=== PATIENT | female | born 1985 | race Caucasian/White ===

== ENCOUNTER 2019-08-01 12:29 | Emergency (ER) | payer BC ==
[~2019-08-01] VITALS: Ht 170.2 cm; Wt 59.0 kg
[2019-08-01 13:10] LABS: URINE BILIRUBIN NEGATIVE (Negative); URINE BLOOD NEGATIVE (Negative); URINE CLARITY CLEAR; URINE COLOR YELLOW; URINE GLUCOSE-RANDOM NEGATIVE (Negative); URINE KETONES NEGATIVE (Negative); URINE LEUKOCYTES-REFLEX NEGATIVE (Negative); URINE NITRITE-REFLEX NEGATIVE (Negative); URINE PROTEIN NEGATIVE (Negative); URINE SPECIFIC GRAVITY 1.025 (1.005-1.030); URINE UROBILINOGEN 0.2 E.U./dl (0.2-1.0)
[2019-08-01 13:13] LABS: ABSOLUTE EOSINOPHILS 0.1 thou/uL (0.0-0.7); ABSOLUTE LYMPHOCYTES 1.8 thou/uL (0.8-5.3); ABSOLUTE MONOCYTES 0.4 thou/uL (0.0-1.2); ABSOLUTE NEUTROPHILS 3.7 thou/uL (1.6-8.1); BASOPHILS 0.6 %; EOSINOPHILS 1.2 %; HEMATOCRIT 38.3 % (37.0-47.0); LYMPHOCYTES 30.3 %; MCH 29.4 pg (26.0-34.0); MCHC 33.8 g/dL (28.0-37.0); MCV 86.9 fL (80.0-100.0); MONOCYTES 6.4 %; MPV 9.5 fl. (7.2-11.1); NUCLEATED RBCS 0 /100WBC; PLATELET COUNT* 186 thou/uL (150-400); POLYS 61.5 %; RBC 4.41 mil/uL (4.20-5.00); RDW-CV 13.9 % (10.5-14.5)
[2019-08-01 13:25] LABS: AMP/METHAMP Negative (Negative); BARBITURATES Negative (Negative); BENZODIAZEPINES Negative (Negative); COCAINE Negative (Negative); METHADONE Negative (Negative); OPIATES Negative (Negative); PCP Negative (Negative); THC Negative (Negative)
[2019-08-01 14:23] LABS: CALCIUM 9.5 mg/dL (8.5-10.1); CREATININE 0.9 mg/dL (0.6-1.3); POTASSIUM 3.3 mmol/L (3.5-5.1)
[2019-08-01 14:28] LABS: TOTAL BILIRUBIN 0.8 mg/dL (<0.1-1.0); TOTAL PROTEIN 7.7 g/dL (6.4-8.2)
[2019-08-01 14:46] VITALS: BP 106/49
--- NOTE | 2019-08-02 13:12 | EKG ---
[place] [address] ELECTROCARDIOGRAM REPORT Name: RADHA FITZGERALD Room: [facility]#: [id number] Admission: 08/01/19 Attend Phys: Discharge: 08/01/19 Date of : 81 Report #: [id number] THIS REPORT FOR: //name// [facility] ED Test Date: 2019-08-01 Test Time: 13:04:41 Pat Name: RADHA FITZGERALD Department: Room: Gender: F Manager Consumer: : 1985 Requested By: Gabe Donis Order Number: [id number] MD: Evans Torre Measurements Intervals [place] Rate: 53 P: 89 LA: 143 QRS: 73 QRSD: 83 T: 55 QT: 417 QTc: 392 Interpretive Statements Sinus rhythm No previous ECG available for comparison Electronically Signed On 08-02-2019 13:11:59 WELFARE ADMINISTRATOR by Evans Torre [email or web address] <ELECTRONICALLY SIGNED> By: Evans Torre MD, [facility] 08/02/19 1311 1304 1304 Evans Torre MD, FACC /EPI
== END 2019-08-01 14:47 | disposition home or self-care (01) ==
LOC: M.ERS 12:29
PROVIDERS: Physician Assistant
DX: F41.9 Anxiety disorder, unspecified (principal); R25.2 Cramp and spasm; M79.661 Pain in right lower leg; Z86.2 Personal history of diseases of the blood and blood-forming organs and certain disorders involving the immune mechanism